=== PATIENT | female | born 1975 | race Caucasian/White ===

== ENCOUNTER → 2024-09-11 11:47 | Outpatient (REF) | payer MEDICARE, SELFPAY | LOC: WDC 11:47 | PROVIDERS: ATTENDING PHYSICIAN Nurse Practitioner Family | DX: Z12.31 Encounter for screening mammogram for malignant neoplasm of breast (principal) | CPT/HCPCS: 77063; 77067 ==

== ENCOUNTER → 2024-09-12 06:28 | Outpatient (REF) | payer MEDICARE, SELFPAY ==
[2024-09-12 07:41] LABS: % Basophils 0.4 % (0-2); % Immature Granulocytes 0.7 % (0-0.5); % Lymphocytes 32.2 % (20.5-51.1); % Monocytes 5.3 % (1.7-9.3); % Neutrophils 59.4 % (42.2-75.2); Absolute Eosinophils 0.2 10^3/uL (0-0.7); Absolute Immature Granulocytes 0.1 10^3/uL (0-0.05); Absolute Lymphocytes 2.4 10^3/uL (1.2-3.4); Absolute Monocytes 0.4 10^3/uL (0.1-0.6); Absolute Neutrophils 4.4 10^3/uL (1.4-6.5); Hematocrit 40.7 % (37.0-47.0); Mean Corp Hgb Conc. 34.4 g/dL (33.0-37.0); Mean Corpuscular Hgb 31.7 pg (27.0-31.0); Mean Corpuscular Volume 92.3 fL (81.0-99.0); Mean Platelet Volume 11.2 fL (7.4-10.4); Nucleated Red Blood Cells % 0 %; Platelet Count 210 10^3/uL (130-400); Red Blood Cell Count 4.41 10^6/uL (4.20-5.40); Red Cell Dist. Width 12.4 % (11.5-14.5); White Blood Cell Count 7.4 10^3/uL (4.8-10.8)
[2024-09-12 08:08] LABS: ALT (SGPT) 20 U/L (0-35); AST (SGOT) 24 U/L (14-36); Albumin 4.2 g/dl (3.5-5.0); Alkaline Phosphatase 88 U/L (38-126); Blood Urea Nitrogen 13 mg/dl (7-17); Calcium 9.5 mg/dl (8.4-10.2); Carbon Dioxide 23 mmol/L (22-30); Chloride 105 mmol/L (98-107); Glucose 103 mg/dl (70-99); HDL Cholesterol 79 mg/dl; LDL Cholesterol, Calculated 102 mg/dl; Potassium 4.4 mmol/L (3.5-5.1); Sodium 139 mmol/L (135-145); Total Bilirubin 0.5 mg/dl (0.2-1.3); Total Cholesterol 219 mg/dl (50-199); Triglyceride 191 mg/dl (10-149); Very Low Density Lipoprotein 38 mg/dl (0-30); eGFR > 60.00
[2024-09-12 09:50] LABS: TSH Reflex To Free T4 3.83 uIU/ml (0.47-4.68)
[2024-09-12 10:54] LABS: Glycohemoglobin (HgbA1c) 4.8 % (4.0-5.6)
[2024-09-13 05:05] LABS: Hepatitis C Antibody Negative (Negative)
== END ==
LOC: REG 06:28
PROVIDERS: ATTENDING PHYSICIAN Nurse Practitioner Family
DX: Z00.00 Encounter for general adult medical examination without abnormal findings (principal); R73.01 Impaired fasting glucose; E78.5 Hyperlipidemia, unspecified; Z11.59 Encounter for screening for other viral diseases
CPT/HCPCS: 36415; 80053; 80061; 83036; 84443; 85025; 86803

== ENCOUNTER 2025-05-01 09:36 | Emergency (ER) | payer MEDICARE, SELFPAY ==
[2025-05-01 09:40] VITALS: BP 126/70
--- NOTE | 2025-05-01 11:12 | ED.GENMED ---
History of Present Illness
General
Chief Complaint: Head Injury
Source: patient
Exam Limitations: none
Time Seen by Provider: 05/01/25 11:01
Nursing documentation reviewed up to this point in time: agreed with
History of Present Illness
History of Present Illness:
Patient is a 50-year-old female who was at work yesterday and fell landing on her left face and head. She slipped on her slipper and hit a carpeted floor. She denies loss of consciousness. She did not sleep well last night and just felt a little
off along with having a headache to come to the ER. She denies any nausea vomiting blurred vision. She denies any neck, back or extremity pain. Patient is not on blood thinners.
Phy Exam
General Physical Exam
General Presentation: no apparent distress
General age: appears stated age
General Skin: warm and dry
General Habitus: normal
General Mental: alert
General Hydration: appears well hydrated
ENT Exam
ENT Exam: EOMI and neck supple
Eye Exam
Eye Exam: PERRL and EOMI
Eye Exam General: PERRL: bilateral and EOM intact: bilateral
Pupil Exam: Bilateral: round and reactive
Neurological Exam
Neurological Exam: alert and oriented x3
Musculoskeletal Exam
Musculoskeletal Exam: full ROM and other (Fall redness to left side of face; no facial tenderness; no bony C-spine tenderness; full range of motion of all extremities)
Skin Exam
Skin Exam: normal color and warm/dry
Psychiatric Exam
Psychiatric Exam: normal mood/affect
Course
Orders/Labs/Results
Orders:
Orders
05/01/25 09:45
CT Head W/o Iv Contrast Urgent
Comment: c/o DIXON/woozy
Reason For Exam: fell hit head yesterday at work
Vital Signs
Initial and Last Documented VS:
Initial Vital Signs
Temp Pulse Resp BP Pulse Ox
98.3 F 100 16 126/70 98
05/01/25 09:40 05/01/25 09:40 05/01/25 09:40 05/01/25 09:40 05/01/25 09:40
Last Documented Vital Signs
Temp Pulse Resp BP Pulse Ox
98.3 F 100 16 126/70 98
05/01/25 09:40 05/01/25 09:40 05/01/25 09:40 05/01/25 09:40 05/01/25 11:13
MDM/Problems Addressed
Differential Diagnosis Includes:
not limited to : Head injury, contusion, concussion
MDM/Problems Addressed:
Symptoms are consistent with head injury, possible mild concussion however patient. I. Stable reassuring. Recheck.
*Pulse Oximetry
SaO2: 98
Oxygen Mode of Delivery: Room air
Patient hypoxic: no
*Critical Care Note
Total Time (30-74mins, 75-104mins- exclusive of procedures): Not Applicable
ED Attending Note
-
Portions of this chart may have been created with voice recognition software.� Occasional wrong word or��sound alike� substitutions may have occurred due to the inherent limitations of voice recognition software.
Discharge Plan
Departure
Patient Disposition: Home (Routine Discharge)
Date of Disposition: 05/01/25
Time of Disposition: 11:14
Patient with high blood pressure during this ER visit?: No
Condition: Fair
Covid-19: Not Applicable
Discharge Problem:
Head injury
Instructions: Concussion, Adult (DC), Head Injury in Adults (DC)
Activity Restrictions/Additional Instructions:
As discussed you may alternate between Tylenol and ibuprofen for headache. Also follow-up with your family doctor in the next 2-3 days for reevaluation. Return if any worsening of symptoms
Interventions
Interventions:
*Risk Screen - Suicide Last Done: 05/01/25 09:40
*General Assessment Last Done: 05/01/25 09:40
*Neglect/Abuse Screening Last Done: 05/01/25 09:40
*ED COVID-19 Vaccine History Last Done: 05/01/25 09:40
*ED Influenza Vaccine History Last Done: 05/01/25 09:40
[facility] Fall Risk Assessment Tool Last Done: 05/01/25 11:23
*Nursing Disposition Last Done: 05/01/25 11:31
ED- Neurological Assessment Last Done: 05/01/25 11:23
ED-Skin Assessment Last Done: 05/01/25 11:23
Discharge Date and Time
Discharge Date/Time: 05/01/25 11:31
Print Language: MONEGASQUE
== END 2025-05-01 11:31 | disposition home or self-care (01) ==
LOC: EMR 09:36
PROVIDERS: EMERGENCY PHYSICIAN Emergency Medicine; FAMILY PHYSICIAN Nurse Practitioner Family
DX: S09.90XA Unspecified injury of head, initial encounter (principal); W01.0XXA Fall on same level from slipping, tripping and stumbling without subsequent striking against object, initial encounter; Y99.0 Civilian activity done for income or pay
CPT/HCPCS: 99284; 70450